=== PATIENT | female | born 1975 | race Caucasian/White ===

== ENCOUNTER → 2019-03-27 | Outpatient (CLI) | payer OTHER ==
--- NOTE | ~2019-03-27 | PF ---
[place], [place] PULMONARY FUNCTION TEST [id number] UNIT #: [id number] ROOM: DOCTOR: ERIKA MAIN MD,ESTRADA BIRTHDATE: [birth year] DOS: 03/27/2019 PULMONARY FUNCTION TEST The test was ordered by Dr. Sadia Hallman. HISTORY: The patient is recorded 43-year-old female, height of 63 inches, weight 176 pounds, BMI 31.2. The testing is done for assessment and diagnosis of COPD. The patient noted to have tobacco use 1 pack of cigarettes per day for the past 30 years. SPIROMETRY: The FVC of 2.71 liters, 77% of predicted value. FEV1 of 1.71 liters, 59% predicted value. The ratio of FEV1/FVC postbronchodilator recorded 65%. Flow volume loop was noted. Finding suggestive of obstructive lung disease. Lung diffusion recorded 84% that was normal. The patient unable to perform the remaining pulmonary function test that is plethysmography. FINAL IMPRESSION: Current test noted findings consistent with moderate chronic obstructive pulmonary disease. ESTRADA JAMES MD CM:PFREPORT:PULMONARY FUNCTION TEST [id number] ESTRADA MAIN MD
== END | disposition home or self-care (01) ==
LOC: CP 08:28
DX: J44.1 Chronic obstructive pulmonary disease with (acute) exacerbation (principal); F17.200 Nicotine dependence, unspecified, uncomplicated

== ENCOUNTER → 2021-01-07 | Outpatient (CLI) | payer OTHER | END | disposition home or self-care (01) | LOC: MAMMO 12-24 09:00 → US 12-24 09:30 → MAMMO 12:59 | PROVIDERS: ATTEND Nurse Practitioner Women's Health | DX: N64.89 Other specified disorders of breast (principal); N92.0 Excessive and frequent menstruation with regular cycle ==

== ENCOUNTER → 2023-05-02 | Day surgery (SDC) | payer OTHER ==
[2023-05-01 13:26] LABS: BASO # 0.1 10*3/uL (0.0-0.1); BASO % 0.7 % (0.0-1.0); HEMATOCRIT 35.9 % (37.0-47.0); LYMPH # 2.2 10*3/uL (1.3-4.4); MEAN CELL VOLUME 82.7 fl (81.0-99.0); MEAN CORPUSCULAR HGB 26.5 pg (27.0-31.0); MEAN PLATELET VOLUME 10.4 fl (9.6-12.3); MONO # 0.6 10*3/uL (0.1-1.0); PLATELET COUNT AUTOMATED 315 10*3/uL (130-400); RED BLOOD COUNT 4.34 10*6/uL (4.10-5.10); RED CELL DISTRI WIDTH 17.5 % (0-14.5)
[~2023-05-02] VITALS: Ht 157.4 cm; Wt 77.1 kg
[~2023-05-02] MED LIST: CLARITIN10 MG PO; LIPITOR10 MG PO; METFORMIN HYDR500 MG PO; NICODERM CQ1 EAC2 T; OMEPRAZOLE MAGN20 MG PO; VENT7GM INH; ZESTRIL20 MG PO
[2023-05-02 10:47] VITALS: BP 127/67
[2023-05-02 13:55] VITALS: BP 123/63
[2023-05-02 14:10] VITALS: BP 125/66
[2023-05-02 14:25] VITALS: BP 114/57
[2023-05-02 14:40] VITALS: BP 118/60
[2023-05-02 14:55] VITALS: BP 113/65
== END | disposition home or self-care (01) ==
LOC: SDC 05-01 13:15
PROVIDERS: ATTEND Specialist
DX: J38.3 Other diseases of vocal cords (principal); I10 Essential (primary) hypertension; E11.9 Type 2 diabetes mellitus without complications; J44.9 Chronic obstructive pulmonary disease, unspecified

== ENCOUNTER 2024-09-02 18:05 | Emergency (ER) | payer OTHER ==
[~2024-09-02] VITALS: Ht 160 cm; Wt 72.6 kg
[2024-09-02] MEDS ORDERED: methylPREDNISolone sod succ 125 MG VIAL IM ONE (18:30)
[2024-09-02] MEDS ORDERED: Albuterol Sulf/Ipratropium 3 ML VIAL NEB ONE (18:30)
[2024-09-02] MEDS ORDERED: AVPAK AZITHROM250 M1 PO (20:27)
[2024-09-02] MEDS ORDERED: PREDNISONE50 MG PO (20:27)
[2024-09-02] MEDS ORDERED: AZITHROMYCIN 250 MG TAB PO ONE (20:30)
[2024-09-02] MEDS ORDERED: ALBUTEROL 8 GM INHALER INH ONE (20:30)
== END 2024-09-02 20:29 | disposition home or self-care (01) ==
LOC: ED 18:05
DX: J44.1 Chronic obstructive pulmonary disease with (acute) exacerbation (principal); I10 Essential (primary) hypertension; E11.9 Type 2 diabetes mellitus without complications; F17.290 Nicotine dependence, other tobacco product, uncomplicated; Z98.890 Other specified postprocedural states

== ENCOUNTER 2025-06-05 22:06 | Emergency (ER) | payer SELFPAY ==
[~2025-06-05] VITALS: Ht 160 cm; Wt 72.6 kg
[~2025-06-05 22:06] MED LIST changes: +AVPAK AZITHROM250 M1 PO; +PREDNISONE50 MG PO
[2025-06-05] MEDS ORDERED: Albuterol Sulf/Ipratropium 3 ML VIAL NEB ONE (22:55)
[2025-06-05 23:22] LABS: BASO # 0.1 10*3/uL (0.0-0.1); BASO % 0.5 % (0.0-1.0); EOS # 0.0 10*3/uL (0.0-0.4); EOS % 0.0 % (1.0-4.0); MEAN CELL VOLUME 94.8 fl (81.0-99.0); MEAN CORPUSCULAR HGB 32.1 pg (27.0-31.0); MEAN PLATELET VOLUME 10.1 fl (9.6-12.3); MONO # 0.8 10*3/uL (0.1-1.0); MONO % 7.6 % (3.0-9.0); NEUT # 6.5 10*3/uL (2.3-7.9); NEUT % 65.1 % (47.0-73.0); NUCLEATED RED BLOOD CELL 0.0 % (0.0-0.0); NUCLEATED RED BLOOD CELL 0.0 10*3/uL (0.0-0.0); PLATELET COUNT AUTOMATED 224 10*3/uL (130-400); RED CELL DISTRI WIDTH 13.1 % (0-14.5)
[2025-06-05 23:47] LABS: BUN 13 mg/dl (9-23)
[2025-06-06] MEDS ORDERED: ALBUTEROL2.5 MG/0.5 INH (00:12)
[2025-06-06] MEDS ORDERED: PREDNISONE20 M1 PO (00:12)
[2025-06-06] MEDS ORDERED: ALBUTEROL 8 GM INHALER INH ONE (00:15)
[2025-06-06] MEDS ORDERED: Albuterol Sulf/Ipratropium 3 ML VIAL NEB ONE ×2 (00:15→00:20)
== END 2025-06-06 00:37 | disposition home or self-care (01) ==
LOC: ED 22:06
PROVIDERS: Emergency Medicine
DX: J44.1 Chronic obstructive pulmonary disease with (acute) exacerbation (principal); F17.200 Nicotine dependence, unspecified, uncomplicated; Z79.899 Other long term (current) drug therapy; Z98.890 Other specified postprocedural states

== ENCOUNTER 2025-07-20 18:25 | Emergency (ER) | payer SELFPAY ==
[~2025-07-20] VITALS: Ht 160 cm
[~2025-07-20 18:25] MED LIST changes: +ALBUTEROL2.5 MG/0.5 INH; +PREDNISONE20 M1 PO
[2025-07-20] MEDS ORDERED: Albuterol Sulf/Ipratropium 3 ML VIAL NEB ONE (20:55)
[2025-07-20] MEDS ORDERED: Water, Sterile 10 ML VIAL ONE (22:18)
== END 2025-07-20 22:00 | disposition left against medical advice (07) ==
LOC: ED 18:25
DX: J20.8 Acute bronchitis due to other specified organisms (principal); R10.9 Unspecified abdominal pain; Z79.899 Other long term (current) drug therapy; Z79.84 Long term (current) use of oral hypoglycemic drugs; Z53.29 Procedure and treatment not carried out because of patient's decision for other reasons

== ENCOUNTER 2025-11-03 18:49 | Emergency (ER) | payer BC ==
[~2025-11-03] VITALS: Ht 160 cm; Wt 74.8 kg
[2025-11-03] MEDS ORDERED: IBUPROFEN 600 MG TAB PO ONE (20:00)
[2025-11-03] MEDS ORDERED: NAPROSYN500 MG PO (21:19)
[2025-11-03] MEDS ORDERED: AMOX-CLAV 875-1 EACH PO (21:19)
[2025-11-03] MEDS ORDERED: Amoxicillin/Clavulanate Pota 875 MG TAB PO ONE (21:20)
== END 2025-11-03 21:27 | disposition home or self-care (01) ==
LOC: ED 18:49
DX: H66.91 Otitis media, unspecified, right ear (principal); M65.312 Trigger thumb, left thumb; I10 Essential (primary) hypertension; J44.89 Other specified chronic obstructive pulmonary disease; E11.9 Type 2 diabetes mellitus without complications